=== PATIENT | female | born 1985 | race Two or more races ===

== ENCOUNTER 2018-08-11 07:33 | Outpatient (CLI) | payer MEDICAID | END 2018-08-11 12:40 | disposition home or self-care (01) | LOC: OBT 07:33 → L-D 07:33 → OBT 12:40 | DX: O26.892 Other specified pregnancy related conditions, second trimester (principal); R68.84 Jaw pain; Z3A.28 28 weeks gestation of pregnancy | CPT/HCPCS: Z7500 ==

== ENCOUNTER 2018-08-11 12:41 | Emergency (ER) | payer MEDICAID ==
[2018-08-11] MEDS: ACETAMINOPHEN 500 MG TAB PO (13:24)
== END 2018-08-11 14:13 | disposition home or self-care (01) ==
LOC: FTE 14:13
DX: R68.84 Jaw pain (principal); Y04.2XXA Assault by strike against or bumped into by another person, initial encounter
CPT/HCPCS: 99282; Z7502